=== PATIENT | female | born 1940 | race Caucasian/White ===

== ENCOUNTER 2016-08-05 05:18 | Inpatient (IN) | payer BC, OTHER ==
[2016-07-24 11:18] VITALS: BMI 34.0
--- NOTE | 2016-07-24 11:51 | PAT Medication Instructions ---
Service Date July 24, 2016. Current Home Medication List Atorvastatin (Lipitor), 20 MG PO QAM Baclofen (Lioresal), 10 MG PO TID Calcium Carbonate-Cholecalcife (Caltrate 600+D), 1 TAB PO BID Cranberry-Vitamin C-Vitamin E (Cranberry), 1 TAB PO BID Fish Oil (Partlow-3), 1 CAP PO BID Flaxseed (Linseed) (Flaxseed Oil), 1 TAB PO BID Glimepiride (Glimepiride), 0.5 MG PO QAM Liraglutide (Victoza), 0.6 MG INJ HS Lisinopril (Zestril), 5 MG PO QAM Metformin Hcl (Glucophage), 1,000 MG PO BID [Cinnamon], 1 TAB PO BID [Milk Thistle], 240 MG PO QAM [Turmeric], 1 TAB PO BID [Vitamin C ], 1 TAB PO QAM Medication Instructions For Your Scheduled Surgery - Hold the following medications starting 07/25/16: [Turmeric], 1 TAB PO BID [Cinnamon], 1 TAB PO BID [Milk Thistle], 240 MG PO QAM Flaxseed (Linseed) (Flaxseed Oil), 1 TAB PO BID Cranberry-Vitamin C-Vitamin E (Cranberry), 1 TAB PO BID Fish Oil (Partlow-3), 1 CAP PO BID - Hold the following medications 48 hours prior to surgery: Metformin Hcl (Glucophage), 1,000 MG PO BID - Hold the following medications the morning of surgery: [Vitamin C ], 1 TAB PO QAM Lisinopril (Zestril), 5 MG PO QAM Glimepiride (Glimepiride), 0.5 MG PO QAM Calcium Carbonate-Cholecalcife (Caltrate 600+D), 1 TAB PO BID Baclofen (Lioresal), 10 MG PO TID - Take the following medications the morning of surgery with a sip of water: Atorvastatin (Lipitor), 20 MG PO QAM - Take the following medications as scheduled the night before surgery: Liraglutide (Victoza), 0.6 MG INJ HS Calcium Carbonate-Cholecalcife (Caltrate 600+D), 1 TAB PO BID Baclofen (Lioresal), 10 MG PO TID If you have any questions please call us at [phone] or [phone] or [phone]
--- NOTE | 2016-07-24 12:35 | DIAGNOSTIC IMAGING REPORT ---
TWO VIEW CHEST CLINICAL HISTORY: Preoperative examination. FINDINGS: PA and lateral chest radiographs are obtained. No prior studies are available for comparison at the time of dictation. The cardiomediastinal silhouette is unremarkable. Nonspecific interstitial thickening is noted. There is no airspace consolidation or pleural effusion. There is no pneumothorax. The skeletal structures are osteopenic. Degenerative change is seen throughout the thoracic spine. IMPRESSION: No active disease in the chest. Electronically signed by: Italo Appiah M.D. 07/24/2016 12:34 PM Dictated Date/Time: 07/24/2016 12:33 PM
[2016-07-24 12:59] LABS: HEMATOCRIT 44.6 % (37-47); MEAN CELL VOLUME 95.3 fL (80-100); MEAN CORPUSCULAR HEMOGLOBIN 30.8 pg (25-34); MEAN CORPUSCULAR HGB CONC 32.3 g/dl (32-36); MEAN PLATELET VOLUME 11.8 fL (7.4-10.4); PLATELET COUNT 296 K/uL (130-400); RED BLOOD COUNT 4.68 M/uL (4.2-5.4); WHITE BLOOD COUNT 10.37 K/uL (4.8-10.8)
[2016-07-24 13:10] LABS: URINE APPEARANCE CLEAR (CLEAR); URINE BILIRUBIN NEG (NEG); URINE COLOR YELLOW; URINE EPITHELIAL CELL AUTO >30 /lpf (0-5); URINE NITRITE NEG (NEG); URINE PH 5.5 (4.5-7.5); URINE SPECIFIC GRAVITY 1.022 (1.000-1.030); UROBILINOGEN NEG (NEG); ZZUR CULT IF INDIC CLEAN CATCH NO
[2016-07-24 13:12] LABS: MANUAL MICROSCOPIC REQUIRED? NO; REVIEW REQ? NO
[2016-07-24 13:13] LABS: INR 0.9 (0.9-1.1); PARTIAL THROMBOPLASTIN RATIO 1.1; PROTHROMBIN TIME (PATIENT) 10.1 SECONDS (9.0-12.0)
[2016-07-24 13:46] LABS: BASO % 0.6 %; BASO ABS # 0.06 K/uL (0-0.2); COMPLETE YES; EOS % 3.8 %; IG% 0.6 %; LYMPH % 48.4 %; LYMPH ABS # 5.02 K/uL (1.2-3.4); MONO % 9.3 %; NEUT % 37.3 %
--- NOTE | 2016-08-04 15:38 | HISTORY & PHYSICAL EXAMINATION ---
DATE OF ADMISSION: 08/05/2016 CHIEF COMPLAINT: Right hip pain. HISTORY OF PRESENT ILLNESS: Mrs. Robbins is a 76-year-old female with a greater than 1 year history of right hip pain. She rates her pain at 10/10. She has pain with her daily activities. She has limited standing and walking tolerance. Pain is worse with weightbearing. The patient has had [id number] pain medication. She ambulates with a cane. She is unable to exercise due to her pain level. She has failed conservative treatment and is scheduled for right hip replacement. PAST MEDICAL HISTORY: Rheumatoid arthritis, diabetes, hypertension, hypercholesterolemia. She denies heart disease or DVT. PAST SURGICAL HISTORY: Hysterectomy and cholecystectomy. SOCIAL HISTORY: The patient denies alcohol use. She smokes 6-7 cigarettes per day. She lives in a 2-story home. She is and retired. FAMILY HISTORY: Negative. MEDICATIONS: Baclofen 10 mg 4 times daily, metformin 1000 mg b.i.d., lisinopril 5 mg daily, Victoza, glimepiride 1 mg daily, atorvastatin 40 mg daily. ALLERGIES: PENICILLIN CAUSES HIVES. REVIEW OF SYSTEMS: See HPI. Ten other systems reviewed, all negative. PHYSICAL EXAMINATION: VITAL SIGNS: Height 5 feet 2 inches, weight 190 pounds, BMI is 34. GENERAL: This is a well-developed, well-nourished female who is alert and oriented x3. Mood and affect are appropriate. HEENT: Normocephalic, atraumatic. Mucous membranes are moist and intact. NECK: Supple without lymphadenopathy. HEART: Regular rate and rhythm without murmurs, rubs or gallops. LUNGS: Clear to auscultation without wheezes or rhonchi. ABDOMEN: Soft and nontender. Bowel sounds are equal and active. She does have a large abdominal pannus. EXTREMITIES: No ecchymosis, redness or warmth. Thigh and calf are soft and nontender. She has some varicosities distally. Log roll of the hip reproduces pain in the groin. She is neurovascularly intact with +5/5 strength. She walks with an antalgic gait. X-RAY EXAMINATION: AP and lateral views show joint space narrowing and osteophyte formation. IMPRESSION: 1. Degenerative joint disease, right hip. 2. Diabetes. 3. Rheumatoid arthritis. PLAN: The patient will be admitted for a right total hip arthroplasty. We will plan on aspirin for DVT prophylaxis. The patient will have [facility] for home physical therapy.
[~2016-08-05] VITALS: Ht 157.5 cm; Wt 85.5 kg
[2016-08-05] VITALS (9 sets, daily range): BP systolic 98–148; BP diastolic 53–86; PULSE 60–84; TEMP 36.2–36.7; O2SAT 91–98; Ht 157.5 cm; Wt 85.5 kg
[~2016-08-05 05:18] MED LIST: ATOR-22 PO; BACL10TA PO; CALC-354 PO; CINNAMON PO; CRAN1CAP15 PO; FLAX12003 PO; GLIM1TAB2 PO; LIRA18IN INJ; LISI-729 PO; METF-384 PO; MILK THISTLE PO; OMEG10007 PO; TURMERIC PO; VITAMIN C PO
[2016-08-05] MEDS ORDERED: CLINDAMYCIN 600 MG/54 ML D5W 54 ML IV SCH (06:00)
[2016-08-05] MEDS ORDERED: LACTATED RINGER'S 1000ML IV SCH (06:00)
[2016-08-05] MEDS ORDERED: FAMOTIDINE 20 MG TAB PO SCH (06:00)
[2016-08-05] MEDS ORDERED: LACTATED RINGER'S 1000ML 1,000 ML IV SCH (06:00)
[2016-08-05] MEDS ORDERED: ACETAMINOPHEN 500 MG TAB PO SCH (06:00)
[2016-08-05] MEDS ORDERED: METOCLOPRAMIDE HCL 10 MG TAB PO SCH (06:00)
[2016-08-05] MEDS ORDERED: ROPIVACAINE 5MG/ML 30 ML 150 MG, BUPIVACAINE/EPINEPHR 0.5% MPF 30 ML, KETOROLAC TROMETH... INFIL SCH ×7 (06:00)
[2016-08-05] MEDS ORDERED: POLYMYXIN B SULFATE 100,000 UNITS in NSS 100ML IR SCH (06:00)
[2016-08-05] MEDS ORDERED: LACTATED RINGER'S 1000ML 500 ML IV ONE (06:00)
[2016-08-05] MEDS ORDERED: VANCOMYCIN INJ 400 MG in NSS 100ML IR SCH (06:00)
[2016-08-05] MEDS ORDERED: GABAPENTIN 300 MG CAP PO SCH (06:00)
[2016-08-05] MEDS ORDERED: BUPIVACAINE 0.5 % 5 MG/1 ML PF 10ML VIAL ONE (06:28)
[2016-08-05] MEDS: TRANEXAMIC ACID INJ 1,000 MG in SODIUM CHLORIDE 0.9% 100ML 100 ML IV SCH ×2 (06:30→06:54)
[2016-08-05] MEDS ORDERED: MIDAZOLAM HCL 1 MG/ML 2ML VIAL ONE (06:41)
[2016-08-05] MEDS ORDERED: POVIDONE-IODINE OP SOLN 30 ML BTL ONE (06:58)
[2016-08-05] MEDS ORDERED: ORTHO JOINT ANESTHETIC ONE (06:58)
[2016-08-05] MEDS ORDERED: BACITRACIN 50000 UNIT VIAL ONE (06:58)
[2016-08-05] MEDS ORDERED: ATROPINE SULFATE 0.1 MG/ML 5ML SYR IV PRN (07:00)
[2016-08-05] MEDS ORDERED: FENTANYL CITRATE INJ 50 MCG/1 ML 2 ML VIAL IV PRN (07:00)
[2016-08-05] MEDS ORDERED: EpHEDrine SULFATE INJ 50 MG/ML AMP IV PRN (07:00)
[2016-08-05] MEDS ORDERED: ONDANSETRON INJ 2 MG/ML 2 ML VIAL IV PRN ×2 (07:00→09:00)
--- NOTE | 2016-08-05 07:03 | History & Physical Bridge Note ---
H&P Re-Evaluation Bridge Note: I have examined the patient, reviewed the History & Physical and in the interval since the performance of the History & Physical I have noted the following changes of clinical significance: No changes noted
[2016-08-05] MEDS ORDERED: LIDOCAINE HCL 2% 2 ML VIAL (20MG/ML) ONE (08:17)
[2016-08-05] MEDS ORDERED: PROPOFOL IV EMULSION 10 MG/ML 20 ML VIAL IV ONE (08:17)
[2016-08-05] MEDS ORDERED: EpHEDrine SULFATE 50MG/5ML SYR ONE (08:20)
--- NOTE | 2016-08-05 08:53 | DIAGNOSTIC IMAGING REPORT ---
INTRAOPERATIVE RIGHT HIP SINGLE VIEW CLINICAL HISTORY: Hip arthroplasty COMPARISON STUDY: No previous studies for comparison. FINDINGS: 19 seconds of fluoroscopic time was utilized. A single intraoperative fluoroscopic spot image was acquired. There are postsurgical changes of a total right hip arthroplasty. There is no dislocation. No fractures are visualized. IMPRESSION: Postsurgical changes of a total right hip arthroplasty. Electronically signed by: Jack Toscano M.D. 08/05/2016 8:52 AM Dictated Date/Time: 08/05/2016 8:51 AM
--- NOTE | 2016-08-05 08:54 | [facility] Post Operative Brief Note ---
Immediate Operative Summary Operative Date Aug 05, 2016. Pre-Operative Diagnosis Degenerative Joint Disease, Right Hip Post-Operative Diagnosis Degenerative Joint Disease, Right Hip Procedure(s) Performed Right Total Hip Arthoplasty, Anterior Approach Surgeon Dr. Pardo Backhoe Operator Surgeon(s) Fawad Gutierrez PA-C Estimated Blood Loss 150 cc Findings DJD Specimens A: Right Femoral Head Complication(s) None Disposition Recovery Room / PACU
[2016-08-05] MEDS ORDERED: DiphenhydrAMINE HCL 50 MG/ML VIAL IV PRN (09:00)
[2016-08-05] MEDS ORDERED: GLIMEPIRIDE 0.5 MG PO SCH (09:00)
[2016-08-05] MEDS ORDERED: ZOLPIDEM TARTRATE 5 MG TAB PO PRN (09:00)
[2016-08-05] MEDS ORDERED: MoRPHine SULFATE 2 MG/ML CARP IV PRN (09:00)
[2016-08-05] MEDS ORDERED: METOCLOPRAMIDE HCL INJ 5 MG/ML 2 ML VIAL IV PRN (09:00)
[2016-08-05] MEDS ORDERED: ALUMINUM/MAGNESIUM/SIMETH (MAALOX MAX) 30 ML UDC PO PRN (09:00)
[2016-08-05] MEDS ORDERED: SOD PHOSPHATE/SOD BIPHOSPHATE ENEMA 132 ML BTL PR PRN (09:00)
[2016-08-05] MEDS ORDERED: MAGNESIUM HYDROXIDE SUSP 30 ML UDC PO PRN (09:00)
[2016-08-05] MEDS ORDERED: BISACODYL 10 MG SUPP PR PRN (09:00)
[2016-08-05] MEDS ORDERED: PHARMACY GLYCEMIC MGMT CONSULT PRN (09:11)
--- NOTE | 2016-08-05 09:51 | Pharmacy Progress Note ---
Glycemic Control Intl Consult Date of Service Aug 05, 2016. Scope Glycemic Pharmacist consulted by Dr. Pardo on 08/05/16 for glycemic control and to write orders per [facility] inpatient glycemic control protocol Objective Weight (Kilograms): 85.50 Accuchecks BSG (last 24hrs): Test 08/05/16 05:46 Bedside Glucose 114 mg/dl (70-90) Recent Pertinent Medications Outpatient Anti-diabetic Regimen: * Victoza 0.6mg Sq HS, Metformin 1gm po BIDM, Amaryl 0.5mg po qAM * No A1c on record. Ordered updated A1c to be drawn with AM labs tomorrow. Risk Factors for Insulin Resistance: * Steroids: * Infection: Clindamycin IV periop. * IVF: NS at 100 ml/hr * Recent Surgery: POD 0, R THR * Diet: DM2 Assessment & Plan ASSESSMENT: * ADA & AACE recommend a goal blood sugar range 140-180 mg/dl for the majority of critically ill & non-critically ill patients. However, more stringent targets may be selected in individual cases. * Pt is maintained on oral antidiabetic agents, including Metformin and Amaryl, as an outpatient * Oral agents are not recommended for inpatient use d/t drug interactions, changing PO intake, and difficulty titrating for acute hyper/hypoglycemia. ADA recommends re-initiating outpatient oral agents 1-2 days prior to discharge if/ when appropriate if they were held on admission. * Pt is also taking Victoza as an outpatient. This is non-formulary. Will request that the pt bring in home med to utilize while admitted here. * No steroids administered up to this point. Therefore, will initiate inpatient regimen with a Novolog CF/CR. Add an overnight check at 02 to resolve overnight hyperglycemia if it occurs particularly since no basal insulin is being added to regimen. * Goal will be to maintain post-op BSGs between 100-140 mg/dl to aid in healing and decrease risk of infection. * Of note, when Victoza is resumed then consider discontinuing carb ratio. PLAN FOR INPATIENT GLYCEMIC CONTROL: * No basal insulin * Request Victoza from home for pt's use while admitted * Novolog ACHS + 02 * Set correction factor to 30 mg/dl/unit * Set carb ratio to 1 unit per 10 grams CHO consumed * Set goal range to Low 110 mg/dL - High 140 mg/dL * Please note that the plan above was derived based on current level of insulin resistance and hospital stress. These recommendations are appropriate for inpatient admission only. Plan of care upon discharge will need to be reassessed to avoid potential outpatient hypo/hyperglycemia. Thank you.
--- NOTE | 2016-08-05 10:03 | DIAGNOSTIC IMAGING REPORT ---
RIGHT PELVIS/UNILATERAL HIP 1 VIEW CLINICAL HISTORY: Right hip arthroplasty. COMPARISON: None FINDINGS: Alignment of the total right hip arthroplasty is anatomic. Surgical drain is in place. There is no periprosthetic fracture or unexpected radiopaque foreign body. IMPRESSION: Expected findings following total right hip arthroplasty. Electronically signed by: Nico Fenton M.D. 08/05/2016 10:02 AM Dictated Date/Time: 08/05/2016 10:01 AM
--- NOTE | 2016-08-05 10:18 | Anesthesiology Progress Note ---
Anesthesia Post Op Note Date & Time Aug 05, 2016 at 10:17 Vital Signs Pain Intensity: 0 Vital Signs Past 12 Hours Date Time Temp Pulse Resp B/P (MAP) Pulse Ox O2 Delivery O2 Flow Rate FiO2 08/05/16 10:05 36.2 63 16 109/58 98 Nasal Cannula 3 Mask 08/05/16 09:55 65 16 107/54 98 Nasal Cannula 3 Mask 08/05/16 09:45 66 16 117/61 99 Mask 10 08/05/16 09:35 66 16 94/47 99 Mask 10 08/05/16 09:28 36.6 67 16 115/61 94 Mask 10 08/05/16 05:58 36.7 78 20 148/86 93 Room Air Notes Mental Status: alert / awake / arousable, participated in evaluation Pt Amnestic to Procedure: Yes Nausea / Vomiting: adequately controlled Pain: adequately controlled Airway Patency, RR, SpO2: stable & adequate BP & HR: stable & adequate Hydration State: stable & adequate Neuraxial Anesthesia: was administered, sensory block is resolving Anesthetic Complications: no major complications apparent
[2016-08-05] MEDS: SODIUM CHLORIDE 0.9% 1000ML 1,000 ML IV SCH ×2 (12:18→17:28)
[2016-08-05] MEDS: KETOROLAC TROMETHAMINE 15 MG/ML VIAL IV. SCH ×2 (12:19→17:28)
[2016-08-05] MEDS ORDERED: INSULIN ASPART 100 UNITS/ML 3 ML PEN SC ONE (13:15)
[2016-08-05] MEDS: BACLOFEN 10 MG TAB PO SCH ×2 (13:37→14:27)
[2016-08-05] MEDS: ACETAMINOPHEN 500 MG TAB PO SCH ×2 (13:48→21:37)
[2016-08-05] MEDS: OXYCODONE HCL IR 5 MG TAB (IMMEDIATE RELEASE) PO PRN ×2 (15:38→19:55)
[2016-08-05] MEDS: CLINDAMYCIN IV 600 MG in DEXTROSE 5% ADD-VANTAGE 50ML 50 ML IV SCH (15:41)
[2016-08-05] MEDS ORDERED: TRANEXAMIC ACID INJ 1,000 MG in SODIUM CHLORIDE 0.9% 100ML 100 ML IV SCH (16:00)
[2016-08-05] MEDS: INSULIN ASPART 100 UNITS/ML 3 ML PEN SC SCH ×2 (18:59→20:58)
--- NOTE | 2016-08-05 19:13 | OPERATIVE REPORT ---
DATE OF OPERATION: 08/05/2016 PREOPERATIVE DIAGNOSIS: Degenerative arthritis, right hip. POSTOPERATIVE DIAGNOSIS: Same. PROCEDURE: Right total hip replacement. SURGEON: Dr. Pardo. VICE PRESIDENT [employer] INSIGHTS: Fawad Gutierrez PA-C. ANESTHESIA: Spinal. BLOOD LOSS: 150 mL. REPLACEMENT FLUIDS: 1500 mL crystalloid. DRAINS: Hemovac x2. CULTURES: None. COMPLICATIONS: None. COMPONENTS USED: [employer] Polar Hip System: Acetabulum size 48, femur size 4 standard offset, femoral head 0, neck length 32 mm. NOTE: Fawad Gutierrez PA-C was present and assisted throughout due to the complicated nature of this case. He helped with preparation and set up, first assisted throughout and personally closed the fascial, subcutaneous and skin layers and applied the postoperative dressing. DESCRIPTION: Following satisfactory spinal, the patient was supine. The right hip was placed in the traction device and the left leg in the well leg lundy. Right hip was prepared with ChloraPrep and draped sterilely. Following a surgical time-out, an anterior approach was performed in the interval between the sartorius and tensor muscles. The patient had extremely poor quality tissues. The circumflex femoral vessels were identified and ligated. An anterior capsulotomy was performed exposing a very arthritic femoral neck and head. The femoral neck and head were trimmed and removed. The acetabular self-retraining retractor was placed. Acetabular reaming was completed and under fluoroscopic guidance a 48 shell was impacted and secured with a dome screw. Local anesthetic was placed and after irrigation, the polyethylene liner was placed. The femur was placed in a position of external rotation, extension and adduction. Femoral canal was prepared up to a size 4. A trial reduction with a 0 neck length head using fluoroscopy showed good fit and fill of the proximal canal and episcopal of leg lengths using fluoroscopic landmarks. The hip was dislocated. The trial component was removed. The final implant was placed, a Betadine soak was performed and fluoroscopy confirmed the position. After 3 minutes, the Betadine was irrigated. The capsule was closed with 1-0 Vicryl interrupted. A drain was placed. After more irrigation, the fascia was closed with a running suture of 1 Vicryl. The subcutaneous tissues with 1 and 2-0 Vicryl and the skin with a running subcuticular stitch of 3-0 V-Loc. Dermabond and a dry dressing were applied. The patient was returned to her bed in stable condition. I attest to the content of the Intraoperative Record and any orders documented therein. Any exception s are noted below.
[2016-08-05] MEDS: SENNA 8.6 MG TAB PO SCH (20:55)
[2016-08-05] MEDS: ASPIRIN 81 MG ECTAB PO SCH (20:55)
[2016-08-05] MEDS: CALCIUM 600MG + VIT D 400 IU TAB PO SCH (20:56)
[2016-08-06] MEDS: CLINDAMYCIN IV 600 MG in DEXTROSE 5% ADD-VANTAGE 50ML 50 ML IV SCH (00:17)
[2016-08-06] MEDS: KETOROLAC TROMETHAMINE 15 MG/ML VIAL IV. SCH ×4 (00:17→18:49)
[2016-08-06] MEDS: INSULIN ASPART 100 UNITS/ML 3 ML PEN SC SCH ×5 (02:29→21:43)
[2016-08-06] MEDS: OXYCODONE HCL IR 5 MG TAB (IMMEDIATE RELEASE) PO PRN ×2 (02:29→21:43)
[2016-08-06 04:11] VITALS: BP_SYST 121; BP_SYST 91; BP_DIAS 51; BP_DIAS 63; PULSE 64; TEMP 36.5; O2SAT 95
[2016-08-06] MEDS: SODIUM CHLORIDE 0.9% 1000ML 1,000 ML IV SCH (05:10)
[2016-08-06] MEDS: ACETAMINOPHEN 500 MG TAB PO SCH ×3 (05:11→21:45)
[2016-08-06 05:37] LABS: BASO % 0.1 %; BASO ABS # 0.01 K/uL (0-0.2); COMPLETE YES; EOS % 0.2 %; HEMATOCRIT 33.5 % (37-47); IG% 0.3 %; LYMPH % 15.9 %; LYMPH ABS # 1.86 K/uL (1.2-3.4); MEAN CORPUSCULAR HEMOGLOBIN 31.5 pg (25-34); MEAN CORPUSCULAR HGB CONC 32.8 g/dl (32-36); MEAN PLATELET VOLUME 11.8 fL (7.4-10.4); MONO % 6.9 %; NEUT % 76.6 %; PLATELET COUNT 218 K/uL (130-400); RED BLOOD COUNT 3.49 M/uL (4.2-5.4); WHITE BLOOD COUNT 11.67 K/uL (4.8-10.8)
[2016-08-06 06:02] LABS: BUN/CREATININE RATIO 17.9 (10-20); CALCIUM 8.8 mg/dl (8.5-10.1); CREATININE 0.69 mg/dl (0.60-1.20); POTASSIUM 4.7 mmol/L (3.5-5.1)
[2016-08-06 07:04] LABS: ESTIMATED AVERAGE GLUCOSE 143 mg/dl; HA1C FLAG Normal (Normal)
[2016-08-06 07:38] VITALS: BP 112/68; PULSE 62; TEMP 36.5; O2SAT 95
--- NOTE | 2016-08-06 07:50 | Orthopedic Progress Note ---
Orthopedic Progress Note Date of Service Aug 06, 2016. Subjective Post OP Day: 1 Reports: feeling well, pain controlled w PO medications, Denies: complaints, chest pain, SOB, nausea / vomiting, light headedness Objective calves soft nontender, N/V intact, hip located, dressing C/D/I, A&O x3, toes mobile, hemovac drainage (75 LAST SHIFT ) Date Time Temp Pulse Resp B/P (MAP) Pulse Ox O2 Delivery O2 Flow Rate FiO2 08/06/16 07:38 36.5 62 16 112/68 (83) 95 Room Air 08/06/16 04:11 36.5 64 16 91/51 (64) 95 Room Air 121/63 (82) 08/06/16 00:09 Room Air 08/05/16 23:15 36.5 84 16 124/68 (86) 91 Room Air 08/05/16 21:34 36.6 60 18 98/53 (68) 92 Room Air 08/05/16 20:00 Room Air 08/05/16 15:23 36.3 64 16 117/71 (86) 98 Nasal Cannula 2.0 08/05/16 13:37 62 16 126/68 (87) 97 Nasal Cannula 2.0 08/05/16 12:30 36.3 63 17 132/79 (96) 97 Nasal Cannula 2.0 08/05/16 11:30 61 16 129/65 (86) 98 Nasal Cannula 2.0 08/05/16 11:00 60 16 112/71 (85) 96 Nasal Cannula 2.0 08/05/16 10:30 36.2 65 16 104/66 (79) 96 Nasal Cannula 2.0 08/05/16 10:30 96 Nasal Cannula 2.0 08/05/16 10:30 96 Nasal Cannula 2.0 08/05/16 10:05 36.2 63 16 109/58 98 Nasal Cannula 3 Mask 08/05/16 09:55 65 16 107/54 98 Nasal Cannula 3 Mask 08/05/16 09:45 66 16 117/61 99 Mask 10 08/05/16 09:35 66 16 94/47 99 Mask 10 08/05/16 09:28 36.6 67 16 115/61 94 Mask 10 Laboratory Results 24 Hours: Test 08/06/16 05:00 White Blood Count 11.67 K/uL Red Blood Count 3.49 M/uL Hemoglobin 11.0 g/dL Hematocrit 33.5 % Mean Corpuscular Volume 96.0 fL Mean Corpuscular Hemoglobin 31.5 pg Mean Corpuscular Hemoglobin Concent 32.8 g/dl Platelet Count 218 K/uL Mean Platelet Volume 11.8 fL Neutrophils (%) (Auto) 76.6 % Lymphocytes (%) (Auto) 15.9 % Monocytes (%) (Auto) 6.9 % Eosinophils (%) (Auto) 0.2 % Basophils (%) (Auto) 0.1 % Neutrophils # (Auto) 8.95 K/uL Lymphocytes # (Auto) 1.86 K/uL Monocytes # (Auto) 0.80 K/uL Eosinophils # (Auto) 0.02 K/uL Basophils # (Auto) 0.01 K/uL Assessment & Plan Assessment: POD 1 SIMON TYPE 2 DIABETES OBESITY TOBBACCO ABUSE Plan: PT TODAY PROBABLE DC [facility] Inhouse Planning Pain Management: Celebrex, PO Tylenol, Oxy IR DVT Prophylaxis: TEDs, SCDs Discharge Planning Discharge Planning: home with home health Pain Management: Celebrex, PO Tylenol, Oxy IR DVT Prophylaxis: TEDs, ASA
--- NOTE | 2016-08-06 08:18 | Discharge Instructions ---
Discharge Instructions Date of Service Aug 06, 2016. Admission Reason for Admission: Right Hip Degenrative Arthritis Discharge Discharge Diagnosis / Problem: sp right total hip arthroplasty Discharge Goals Goal(s): Decrease discomfort, Improve function, Increase independence Activity Recommendations Activity Limitations: per Instructions/Follow-up section . Instructions / Follow-Up Instructions / Follow-Up ACTIVITY RECOMMENDATIONS: SELF CARE INSTRUCTIONS AFTER TOTAL HIP REPLACEMENT : Direct Anterior Approach Until the incision and soft tissues around your hip have healed, there is a possibility that the hip prosthesis could dislocate. A. Hip flexion ( Up & Down out of chair or steps ) may be difficult. This is normal. B. Numbness in front of the thigh is also normal for a few weeks. C. Use hand rails when walking on stairs. D. Wear low heeled shoes with non-slip soles. E. Be sure that your floors are free of things that could trip you - throw rugs , electrical cords, small objects. Avoid wet and waxed floors, especially with crutches and canes. F. Try to walk several times a day with rest periods between. G. Continue with all the exercises taught to you in the hospital. Again, make walking a part of your daily routine. SPECIAL CARE INSTRUCTIONS: VERY IMPORTANT TO READ AND REVIEW A. You may still be at risk for phlebitis and blood clots. 1. Wear surgical stockings (JOEY hose) for 2 weeks after surgery to improve circulation and reduce swelling. 2. Take Aspirin 81mg twice daily for 4 weeks or as directed by your doctor. This is your blood thinner. 3. High risk patients may be prescribed a stronger blood thinner if necessary. 4. If you are on Coumadin normally, your family doctor/management recruiter should monitor your blood work. Expect a phone call the day of or the day after bloodwork is drawn to adjust your dosage. B. You must take antibiotics before having dental work, bladder, bowel and other surgery. Your doctor will provide you with a permanent card to carry describing precautions. C. Call [facility] if you have a fever, redness or swelling around the incision, cloudy drainage from incision, or sudden increase in pain in your hip, not relieved by your regular pain medication. D. Please call the office at if you have any concerns or questions about your operation or recovery. * YOU MAY SHOWER, NO TUB BATHS UNTIL CLEARED BY YOUR DOCTOR. - Keep an extra close eye on the top portion of your incision. Be sure to keep clean & dry. * WEAR JOEY HOSE 20 HOURS PER DAY FOR 2 WEEKS. * YOU MAY PROGRESS FROM A WALKER, TO A CANE, TO INDEPENDENT AT YOUR OWN PACE. * MOST PATIENTS WILL HAVE HOME NURSING FOR THERAPY. IF YOU DECIDE TO DO OUTPATIENT PHYSICAL THERAPY, PLEASE SCHEDULE THIS 3 TIMES PER WEEK. * DERMABOND Prineo- This is a mesh tape dressing that is covered with glue. It should remain in place until the incision is properly healed, usually 10-14 days. This dressing is designed to naturally slough off. You may trim the excess mesh tape as it peels off. Incision may be briefly wet in a shower. Dry immediately by blotting with a clean, dry towel. Do not bath or swim until instructed by your doctor. Do not scratch, rub, or pick at the dressing. Do not apply any topical ointments or lotions until dressing is completely removed and/or instructed by your doctor. There may be a small piece of suture material at one end of your incision. Do not pull or trim this. If it is bothersome or catching on clothing, you may cover it with a band-aid. FOLLOW UP VISIT: If appointment is not already scheduled: Please call [facility] to make a follow-up appointment for 2 weeks after your surgery at . Current Hospital Diet Patient's current hospital diet: Diabetes Type 2 Diet Discharge Diet Recommended Diet: Regular Diet Procedures Procedures Performed: Right Total Hip Arthoplasty, Anterior Approach Pending Studies Studies pending at discharge: no Laboratory Results Hemoglobin A1c Test 08/06/16 05:00 Range/Units Estimated Average Glucose 143 mg/dl Hemoglobin A1c 6.6 H 4.5-5.6 % Medical Emergencies . Who to Call and When: Medical Emergencies: If at any time you feel your situation is an emergency, please call 911 immediately. . Non-Emergent Contact Non-Emergency issues call your: Surgeon . "Provider Documentation" section prepared by Ayleen Kwong. . VTE Core Measure Inpt VTE Proph given/why not?: Other Anticoagulation, T.E.D. Stockings, SCD's [place] Drug Monitoring Program Search Results: patient reviewed within database, no issues identified
--- NOTE | 2016-08-06 08:35 | Anesthesiology Progress Note ---
Anesthesia Post Op Note Date & Time Aug 06, 2016 at 08:35 Vital Signs Vital Signs Past 12 Hours Date Time Temp Pulse Resp B/P (MAP) Pulse Ox O2 Delivery O2 Flow Rate FiO2 08/06/16 08:19 Room Air 08/06/16 07:38 36.5 62 16 112/68 (83) 95 Room Air 08/06/16 04:11 36.5 64 16 91/51 (64) 95 Room Air 121/63 (82) 08/06/16 00:09 Room Air 08/05/16 23:15 36.5 84 16 124/68 (86) 91 Room Air 08/05/16 21:34 36.6 60 18 98/53 (68) 92 Room Air Notes Mental Status: alert / awake / arousable, participated in evaluation Pt Amnestic to Procedure: Yes Nausea / Vomiting: adequately controlled Pain: adequately controlled Airway Patency, RR, SpO2: stable & adequate BP & HR: stable & adequate Hydration State: stable & adequate Neuraxial Anesthesia: was administered, sensory block resolved Anesthetic Complications: no major complications apparent
[2016-08-06] MEDS: ASCORBIC ACID 500 MG TAB PO SCH (09:35)
[2016-08-06] MEDS: MULTIVITAMIN TAB PO SCH (09:35)
[2016-08-06] MEDS: BACLOFEN 10 MG TAB PO SCH ×3 (09:35→21:44)
[2016-08-06] MEDS: ATORVASTATIN 20 MG TAB PO SCH (09:35)
[2016-08-06] MEDS: PANTOprazole SOD 40 MG TAB PO SCH (09:35)
[2016-08-06] MEDS: LISINOPRIL 5 MG TAB PO SCH (09:35)
[2016-08-06] MEDS: CALCIUM 600MG + VIT D 400 IU TAB PO SCH ×2 (09:36→21:45)
[2016-08-06] MEDS: ASPIRIN 81 MG ECTAB PO SCH ×2 (09:36→21:44)
[2016-08-06] MEDS: LIRAGLUTIDE 18 MG/3 ML INJ SC SCH (11:19)
[2016-08-06 11:24] VITALS: BP 113/56; PULSE 65; TEMP 36.9; O2SAT 90
[2016-08-06 14:57] VITALS: BP 125/68; PULSE 65; TEMP 37.2; O2SAT 95
[2016-08-06] MEDS: TRAMADOL HCL 50 MG TAB PO PRN (17:21)
[2016-08-06] MEDS: SENNA 8.6 MG TAB PO SCH (21:44)
[2016-08-06 23:26] VITALS: BP 108/64; PULSE 65; TEMP 37.1; O2SAT 92
[2016-08-07] MEDS: KETOROLAC TROMETHAMINE 15 MG/ML VIAL IV. SCH ×2 (00:37→05:17)
[2016-08-07] MEDS: INSULIN ASPART 100 UNITS/ML 3 ML PEN SC SCH ×2 (01:53→08:00)
[2016-08-07] MEDS: ACETAMINOPHEN 500 MG TAB PO SCH (05:17)
[2016-08-07 07:20] VITALS: BP 100/62; PULSE 64; TEMP 36.8; O2SAT 90
--- NOTE | 2016-08-07 07:53 | Orthopedic Progress Note ---
Orthopedic Progress Note Date of Service Aug 07, 2016. Subjective Post OP Day: 2 Reports: feeling well, Denies: chest pain, SOB, nausea / vomiting, light headedness, calf pain Objective calves soft nontender, N/V intact, incision C/D/I, A&O x3, toes mobile Date Time Temp Pulse Resp B/P (MAP) Pulse Ox O2 Delivery O2 Flow Rate FiO2 08/07/16 07:20 36.8 64 16 100/62 (75) 90 Room Air 08/07/16 00:15 Room Air 08/06/16 23:26 37.1 65 17 108/64 (79) 92 Room Air 08/06/16 16:00 Room Air 08/06/16 14:57 37.2 65 16 125/68 (87) 95 Room Air 08/06/16 11:24 36.9 65 16 113/56 (75) 90 Room Air 08/06/16 08:19 Room Air Assessment & Plan Assessment: POD 2 SIMON TYPE 2 DIABETES OBESITY TOBBACCO ABUSE Inhouse Planning Pain Management: Celebrex, PO Tylenol, Oxy IR DVT Prophylaxis: TEDs, SCDs Discharge Planning Discharge Planning: home with home health (ID HOME TODAY WITH [employer]) Pain Management: Celebrex, PO Tylenol, Oxy IR DVT Prophylaxis: TEDs, ASA
[2016-08-07] MEDS ORDERED: ONDA8TAB6 PO (07:56)
[2016-08-07] MEDS ORDERED: SNK PO (07:56)
[2016-08-07] MEDS ORDERED: RXC5 PO (07:56)
[2016-08-07] MEDS ORDERED: ACET-1138 PO (07:56)
[2016-08-07] MEDS ORDERED: ASPEC81 PO (07:56)
[2016-08-07] MEDS ORDERED: CLB200 PO (07:56)
[2016-08-07 08:03] VITALS: BP 100/62; PULSE 64; TEMP 36.8; O2SAT 90
[2016-08-07] MEDS ORDERED: METFORMIN HCL 500 MG TAB PO SCH (08:30)
[2016-08-07] MEDS: ASCORBIC ACID 500 MG TAB PO SCH (08:45)
[2016-08-07] MEDS: BACLOFEN 10 MG TAB PO SCH (08:45)
[2016-08-07] MEDS: ATORVASTATIN 20 MG TAB PO SCH (08:45)
[2016-08-07] MEDS: CALCIUM 600MG + VIT D 400 IU TAB PO SCH (08:45)
[2016-08-07] MEDS: ASPIRIN 81 MG ECTAB PO SCH (08:45)
[2016-08-07] MEDS: PANTOprazole SOD 40 MG TAB PO SCH (08:46)
[2016-08-07] MEDS: MULTIVITAMIN TAB PO SCH (08:46)
[2016-08-07] MEDS: LISINOPRIL 5 MG TAB PO SCH (08:46)
[2016-08-07] MEDS: LIRAGLUTIDE 18 MG/3 ML INJ SC SCH (08:47)
--- NOTE | 2016-08-07 10:08 | Pharmacy Progress Note ---
Glycemic Control: Progress Nt Date of Service Aug 07, 2016. Scope Glycemic Pharmacist consulted by on 08/05/16 for glycemic control and to write orders per [facility] inpatient glycemic control protocol. Objective Accuchecks BSG (last 24hrs): Test 08/06/16 12:05 08/06/16 17:04 08/06/16 20:31 08/07/16 01:47 Bedside Glucose 114 mg/dl (70-90) 140 mg/dl (70-90) 140 mg/dl (70-90) 145 mg/dl (70-90) Test 08/07/16 08:06 Bedside Glucose 112 mg/dl (70-90) HbA1c: Test 08/06/16 05:00 Hemoglobin A1c 6.6 % (4.5-5.6) H Recent Pertinent Medications Outpatient Anti-diabetic Regimen: * Victoza 0.6mg Sq HS, Metformin 1gm po BIDM, Amaryl 0.5mg po qAM * A1c = 6.6% (EAG = 143 mg/dl) from 08/06/16 Risk Factors for Insulin Resistance: * Recent Surgery: POD 2, R THR * Diet: DM2 Assessment & Plan ASSESSMENT: * ADA & AACE recommend a goal blood sugar range 140-180 mg/dl for the majority of critically ill & non-critically ill patients. However, more stringent targets may be selected in individual cases. Initial: * Pt is maintained on oral antidiabetic agents, including Metformin and Amaryl, as an outpatient * Oral agents are not recommended for inpatient use d/t drug interactions, changing PO intake, and difficulty titrating for acute hyper/hypoglycemia. ADA recommends re-initiating outpatient oral agents 1-2 days prior to discharge if/ when appropriate if they were held on admission. * Pt is also taking Victoza as an outpatient. This is non-formulary. Will request that the pt bring in home med to utilize while admitted here. * No steroids administered up to this point. Therefore, will initiate inpatient regimen with a Novolog CF/CR. Add an overnight check at 02 to resolve overnight hyperglycemia if it occurs particularly since no basal insulin is being added to regimen. * Goal will be to maintain post-op BSGs between 100-140 mg/dl to aid in healing and decrease risk of infection. * Of note, when Victoza is resumed then consider discontinuing carb ratio. 08/07/16: * BSG control is optimal with BSGs ranging 112 - 145 mg/dl during the past 24 hours. * Victoza was resumed yesterday morning. * Will restart Metformin this morning. In response to restarting Metformin will discontinue Novolog CR as I suspect it will be unnecessary. Continue CF to resolve hyperglycemia that occurs. * No other changes to regimen warranted. Planning for discharge later today per ortho. PLAN FOR INPATIENT GLYCEMIC CONTROL: * No basal insulin * Novolog ACHS * Continue correction factor to 30 mg/dl/unit * D/c carb ratio * Continue Victoza 0.6mg SQ daily * Restart Metformin 1gm po BIDM * Continue goal range to Low 110 mg/dL - High 140 mg/dL DISCHARGE RECOMMENDATIONS: * A1c = 6.6% indicating very good outpatient control of BSGs on home regimen. Recommend resuming outpatient regimen upon discharge home. * Please note that the plan above was derived based on current level of insulin resistance and hospital stress. These recommendations are appropriate for inpatient admission only. Plan of care upon discharge will need to be reassessed to avoid potential outpatient hypo/hyperglycemia. Thank you.
[2016-08-07] MEDS: TRAMADOL HCL 50 MG TAB PO PRN (12:21)
[2016-08-07] MEDS ORDERED: ULT50X PO (12:23)
--- NOTE | 2016-08-07 13:00 | DISCHARGE SUMMARY ---
DISCHARGE DIAGNOSIS: Degenerative joint disease, right hip. SECONDARY DIAGNOSES: Rheumatoid arthritis, diabetes mellitus, hypertension, hypercholesterolemia. CONSULTS: None. COMPLICATIONS: None. PROCEDURES: Right total hip arthroplasty performed by Dr. Eloy Pardo on 08/05/2016. BRIEF HISTORY: As dictated in history and physical. HOSPITAL SUMMARY: The patient was admitted on the above date and had the above known surgery performed which she tolerated well. On her first postoperative day, she was feeling well and pain was controlled. She had no complaints. Calves were soft, nontender. Neurovascularly intact. Hip was located. Dressings clean, dry and intact. Toes were mobile. Vital signs were stable. She was afebrile. Hemoglobin was 11.0 and she was started on physical therapy protocol and continued on DVT prophylaxis and pain management. The rest of her stay was essentially uneventful and by 08/07/2016, she was progressing well with her physical therapy and vital signs remaining stable. She was afebrile and it was felt she could be discharged to home with home health services. For further review, please see chart. LABORATORY AND X-RAY DATA: As per chart. DISCHARGE INSTRUCTIONS: The patient was discharged to home in satisfactory condition on 08/07/2016. DIET: Diabetic. ACTIVITY: Follow SIMON instruction sheets and special care instructions as noted. Follow up with Dr. Eloy Pardo in 2 weeks. The patient to call for appointment if one has not been made for you. DISCHARGE MEDICATIONS: New prescriptions - acetaminophen 1000 mg p.o. q. 8 hours for 30 days, aspirin 81 mg p.o. b.i.d., Celebrex 200 mg p.o. daily, Zofran 8 mg p.o. q. 8 hours p.r.n., senna 17.2 mg at bedtime, tramadol 1-2 tabs p.o. q. 4 hours p.r.n. pain. Resume home meds as listed.
[2016-08-08] MEDS ORDERED: CeleBREX 200 MG CAP PO SCH (08:00)
== END 2016-08-07 12:45 | disposition home health service (06) | DRG 470 ==
LOC: C.ACU 05:18 → C.3E 06:00 → ENRESERV 10:05
PROVIDERS: ADMIT Orthopaedic Surgery; ATTEND Orthopaedic Surgery
PROC: 0SR904Z Replacement of Right Hip Joint with Ceramic on Polyethylene Synthetic Substitute, Open Approach (ICD-10-PCS; principal; 2016-08-05 07:15)
DX: M16.11 Unilateral primary osteoarthritis, right hip (principal); E11.9 Type 2 diabetes mellitus without complications; I11.0 Hypertensive heart disease with heart failure; E78.00 Pure hypercholesterolemia, unspecified; M06.9 Rheumatoid arthritis, unspecified; M81.0 Age-related osteoporosis without current pathological fracture; F17.210 Nicotine dependence, cigarettes, uncomplicated; E66.9 Obesity, unspecified; Z68.34 Body mass index [BMI] 34.0-34.9, adult; Z79.899 Other long term (current) drug therapy; Z79.84 Long term (current) use of oral hypoglycemic drugs